=== PATIENT | female | born 1960 | race Caucasian/White ===

== ENCOUNTER 2016-08-13 07:13 | Emergency (ER) | payer BC ==
--- NOTE | 2016-08-13 08:08 | EDM.PDOC ---
ED HISTORY OF PRESENT ILLNESS - General Chief Complaint: Respiratory Problem Stated Complaint: PERSISTENT COUGH AND COLD Time Seen by Provider: 08/13/16 07:18 Source of Information: Reports: Patient History Limitations: Reports: No limitations - History of Present Illness INITIAL COMMENTS - FREE TEXT/NARRATIVE: History of present illness: [] Patient's had one week coughing since she stopped smoking. She's been having sweats at night but denies having any fevers. Patient denies any chest pain or shortness of breath. She states that she's having difficulty sleeping because she's coughing so much. She denies any leg swelling or pain. Review of systems: As per history of present illness and below otherwise all systems reviewed and negative. Past medical history: As per history of present illness and as reviewed below otherwise noncontributory. Surgical history: As per history of present illness and as reviewed below otherwise noncontributory. Social history: No reported history of drug or alcohol abuse. Family history: As per history of present illness and as reviewed below otherwise noncontributory. Physical exam: General: Well developed, well nourished in NAD HEENT: Atraumatic, normocephalic, pupils reactive, negative for conjunctival pallor or scleral icterus, mucous membranes moist, throat clear, neck supple, nontender, trachea midline. Lungs: Clear to auscultation, breath sounds equal bilaterally, chest nontender. No wheezing or accessory muscle use. Heart: S1S2, regular, negative for clicks, rubs, or JVD. Abdomen: Soft, nondistended, nontender. Negative for masses or hepatosplenomegaly. Negative for costovertebral tenderness. Pelvis: Stable nontender. Genitourinary: Deferred. Rectal: Deferred. Extremities: Atraumatic, negative for cords or calf pain. Neurovascular unremarkable. No edema Neuro: Awake, alert, oriented. Cranial nerves II through XII unremarkable. Cerebellum unremarkable. Motor and sensory unremarkable throughout. Exam nonfocal. Diagnostics: [] Therapeutics: [] Marianela Toledo Impression: [] Cough secondary to chronic smoking and recent cessation Plan: [] Kenan dc followup PMD as needed Definitive disposition and diagnosis as appropriate pending reevaluation and review of above. - Related Data Allergies/ADRs: Allergies Allergy/AdvReac Type Severity Reaction Status Date / Time azithromycin Allergy Chest Verified 08/13/16 07:30 Tightness morphine Allergy Itching Verified 08/13/16 07:30 Home Meds: Home Meds Albuterol [Ventolin HFA] 2 puff INH ASDIRECTED 08/13/16 [History] Atenolol 50 mg PO BID 08/13/16 [History] Benzonatate [Tessalon Perles] 100 mg PO TID PRN #20 cap 08/13/16 [Rx] Hydrochlorothiazide 25 mg PO DAILY 08/13/16 [History] Ipratropium/Albuterol Sulfate [Combivent Respimat Inhal [place]] 2 puff INH BID [History] Mometasone/Formoterol [Dulera 100-5 MCG] 2 puff INH BID 08/13/16 [History] Omeprazole 40 mg PO DAILY 08/13/16 [History] Past Medical History Cardiovascular History: Reports: Hypertension Respiratory History: Reports: COPD - Past Surgical History HEENT Surgical History: Reports: Adenoidectomy, Tonsillectomy Female Surgical History: Reports: Hysterectomy, Other (see below) Other Female Surgeries/Procedures: pelvic mesh implant Musculoskeletal Surgical History: Reports: Carpal tunnel Social & Family History - Family History Family Medical History: Noncontributory - Tobacco Use Smoking Status *Q: Former Smoker - Caffeine Use Caffeine Use: Reports: None - Alcohol Use Days Per Week of Alcohol Use: 7 Number of Drinks Per Day: 1 Total Drinks Per Week: 7 - Recreational Drug Use Recreational Drug Use: No ED ROS GENERAL - Review of Systems Review Of Systems: See Below (See history of present illness) ED EXAM, GENERAL - Physical Exam Exam: See Below (See history of present illness) Course - Vital Signs Last Recorded V/S: Last Vital Signs Temp 36.4 C 08/13/16 07:25 Pulse 78 08/13/16 07:25 Resp 18 08/13/16 07:25 BP 130/85 08/13/16 07:25 Pulse Ox 98 08/13/16 07:25 Departure - Departure Time of Disposition: 08:04 Disposition: Home, Self-Care 01 Condition: good Clinical Impression: Cough Prescriptions: Benzonatate [Tessalon Perles] 100 mg PO TID PRN #20 cap PRN Reason: Cough Referrals: PCP,None [Primary Care Provider] - Forms: ED Department Discharge Additional Instructions: The following information is given to patients seen in the emergency department who are being discharged to home. This information is to outline your options for follow-up care. We provide all patients seen in our emergency department with a follow-up referral. The need for follow-up, as well as the timing and circumstances, are variable depending upon the specifics of your emergency department visit. If you don't have a primary care physician on staff, we will provide you with a referral. We always advise you to contact your personal physician following an emergency department visit to inform them of the circumstance of the visit and for follow-up with them and/or the need for any referrals to a consulting specialist. The emergency department will also refer you to a specialist when appropriate. This referral assures that you have the opportunity for follow-up care with a specialist. All of these measure are taken in an effort to provide you with optimal care, which includes your follow-up. Under all circumstances we always encourage you to contact your private physician who remains a resource for coordinating your care. When calling for follow-up care, please make the office aware that this follow-up is from your recent emergency room visit. If for any reason you are refused follow-up, please contact the [facility] Emergency Department at and asked to speak to the emergency department charge nurse. [facility] [address] [place] [id number]
[2016-08-13 08:18] VITALS: BP 133/86
== END 2016-08-13 08:18 | disposition home or self-care (01) ==
LOC: MW.ED 07:13
DX: R05 Cough (principal); I10 Essential (primary) hypertension; J44.9 Chronic obstructive pulmonary disease, unspecified; Z90.710 Acquired absence of both cervix and uterus; Z98.890 Other specified postprocedural states; Z79.899 Other long term (current) drug therapy; Z88.1 Allergy status to other antibiotic agents; Z88.5 Allergy status to narcotic agent; Z87.891 Personal history of nicotine dependence
CPT/HCPCS: 99283

== ENCOUNTER 2017-06-23 21:16 | Observation (INO) | payer BC, OTHER ==
[2017-06-23] MEDS ORDERED: Aspirin 81 MG Tab.Chew PO ONE (21:24)
--- NOTE | 2017-06-23 21:26 | EDM.PDOC ---
ED HPI GENERAL MEDICAL PROBLEM - General Chief Complaint: General Stated Complaint: HBP/PRESSURE CHEST Time Seen by Provider: 06/23/17 21:25 Source of Information: Reports: Patient - History of Present Illness INITIAL COMMENTS - FREE TEXT/NARRATIVE: HISTORY AND PHYSICAL: History of present illness: [57-year-old female presents with chest pressure she rates 3 out of 10, she notes her blood pressure is out of control she is generally on atenolol and hydrochlorothiazide for this, she also has a [id number] history of smoking she has had several attempts over the last couple of months to quit she has not smoked in 7 days, she does have history of COPD on Symbicort. No association with shortness of breath diaphoresis or radiation to arm neck or jaw No fever nausea vomiting chills sweats] Review of systems: As per history of present illness and below otherwise all systems reviewed and negative. Past medical history: As per history of present illness and as reviewed below otherwise noncontributory. Surgical history: As per history of present illness and as reviewed below otherwise noncontributory. Social history: No reported history of drug or alcohol abuse. Family history: As per history of present illness and as reviewed below otherwise noncontributory. Physical exam: HEENT: Atraumatic, normocephalic, pupils reactive, negative for conjunctival pallor or scleral icterus, mucous membranes moist, throat clear, neck supple, nontender, trachea midline. Lungs: Clear to auscultation, breath sounds equal bilaterally, chest nontender. Heart: S1S2, regular, negative for clicks, rubs, or JVD. Abdomen: Soft, nondistended, nontender. Negative for masses or hepatosplenomegaly. Negative for costovertebral tenderness. Pelvis: Stable nontender. Genitourinary: Deferred. Rectal: Deferred. Extremities: Atraumatic, negative for cords or calf pain. Neurovascular unremarkable. Neuro: Awake, alert, oriented. Cranial nerves II through XII unremarkable. Cerebellum unremarkable. Motor and sensory unremarkable throughout. Exam nonfocal. Diagnostics: [CBC CMP and cardiac enzymes amylase lipase UA EKG Chest 1 view ] Therapeutics: [Normal saline 500 mL bolus Aspirin 324 mg chewable Nitroglycerin 0.4 sublingual] 2 Impression: [Chest pain/pressure-resolved after 2 nitroglycerin Headache secondary to nitroglycerin -Hypertension/hypertensive emergency-resolved Patient admitted for telemetry cardiac rule out optimize medical management Dr. Cifuentes ] Definitive disposition and diagnosis as appropriate pending reevaluation and review of above. head Pain Score (Numeric/FACES): 5 chest Pain Score (Numeric/FACES): 3 - Related Data Allergies Allergy/AdvReac Type Severity Reaction Status Date / Time azithromycin Allergy Chest Verified 06/23/17 21:29 Tightness morphine Allergy Itching Verified 06/23/17 21:29 Home Meds: Home Meds Albuterol [Ventolin HFA] 2 puff INH ASDIRECTED 08/13/16 [History] Atenolol 50 mg PO BID 08/13/16 [History] Hydrochlorothiazide 25 mg PO DAILY 08/13/16 [History] Ipratropium/Albuterol Sulfate [Combivent Respimat Inhal [place]] 2 puff INH BID [History] Omeprazole 40 mg PO DAILY 08/13/16 [History] Budesonide/Formoterol Fumarate [Symbicort 160-4.5 Mcg Inhaler] 1 puff IH ASDIRECTED 06/23/17 [History] Imipramine HCl [Imipramine] 0 mg PO DAILY 06/23/17 [History] Past Medical History Cardiovascular History: Reports: Hypertension Respiratory History: Reports: COPD - Past Surgical History Female Surgical History: Reports: Hysterectomy, Other (See Below) Musculoskeletal Surgical History: Reports: Carpal Tunnel Social & Family History - Family History Family Medical History: Noncontributory - Tobacco Use Smoking Status *Q: Former Smoker - Caffeine Use Caffeine Use: Reports: None - Alcohol Use Days Per Week of Alcohol Use: 7 Number of Drinks Per Day: 1 Total Drinks Per Week: 7 - Recreational Drug Use Recreational Drug Use: No ED ROS GENERAL - Review of Systems Review Of Systems: ROS reveals no pertinent complaints other than HPI. ED EXAM, GENERAL - Physical Exam Exam: See Below Course - Vital Signs Last Recorded V/S: Last Vital Signs Temp 98 F 06/23/17 21:16 Pulse 73 06/23/17 22:45 Resp 17 06/23/17 22:45 BP 123/77 06/23/17 22:45 Pulse Ox 97 06/23/17 22:45 - Orders/Labs/Meds Orders: Active Orders 24 hr Category Date Time Status EKG Documentation Completion [RC] STAT Care 06/23/17 21:24 Active Chest 1V Frontal [CR] Stat Exams 06/23/17 21:24 Taken Nitroglycerin [Nitrostat] Med 06/23/17 21:24 Active 0.4 mg SL Q5M PRN Sodium Chloride 0.9% [Normal Saline] 500 ml Med 06/23/17 21:30 Active IV STAT Medication Orders Sodium Chloride (Normal Saline) 500 mls @ 999 mls/hr IV STAT JENNA Last Admin: 06/23/17 21:45 Dose: 999 mls/hr Nitroglycerin (Nitrostat) 0.4 mg SL Q5M PRN PRN Reason: Chest Pain Last Admin: 06/23/17 22:40 Dose: 0.4 mg Admin: 06/23/17 22:35 Dose: 0.4 mg Labs: Laboratory Tests 06/23/17 06/23/17 06/23/17 Range/Units 21:30 21:30 22:20 WBC 8.10 (4.0-11.0) K/uL RBC 4.41 (4.30-5.90) M/uL Hgb 14.1 (12.0-16.0) g/dL Hct 39.7 (36.0-46.0) % MCV 90.0 (80.0-98.0) fL MCH 32.0 (27.0-32.0) pg MCHC 35.5 (31.0-37.0) g/dL RDW Std Deviation 40.0 (28.0-62.0) fl RDW Coeff of Rafael 12 (11.0-15.0) % Plt Count 253 (150-400) K/uL MPV 9.80 (7.40-12.00) fL Neut % (Auto) 55.1 (48.0-80.0) % Lymph % (Auto) 33.2 (16.0-40.0) % [place] % (Auto) 5.3 (0.0-15.0) % Eos % (Auto) 5.8 (0.0-7.0) % Baso % (Auto) 0.6 (0.0-1.5) % Neut # (Auto) 4.5 (1.4-5.7) K/uL Lymph # (Auto) 2.7 H (0.6-2.4) K/uL [place] # (Auto) 0.4 (0.0-0.8) K/uL Eos # (Auto) 0.5 (0.0-0.7) K/uL Baso # (Auto) 0.1 (0.0-0.1) K/uL Nucleated RBC % 0.0 /100WBC Nucleated RBCs # 0 K/uL Sodium 140 (136-146) mmol/L Potassium 3.4 L (3.5-5.1) mmol/L Chloride 103 (98-110) mmol/L Carbon Dioxide 26 (21-31) mmol/L BUN 11 (6.0-23.0) mg/dL Creatinine 0.9 (0.6-1.5) mg/dL Est Cr Clr Drug Dosing TNP Estimated GFR (MDRD) > 60.0 ml/min Glucose 128 H (60-110) mg/dL Calcium 9.9 (8.8-10.8) mg/dL Total Bilirubin 0.3 (0.1-1.5) mg/dL AST 15 (5-40) IU/L ALT 21 (8-54) IU/L Alkaline Phosphatase 80 (40-150) Creatine Kinase 92 (9-236) IU/L CK-MB (CK-2) 2.1 (0-6.6) ng/ml Troponin I < 0.10 (0.0-0.29) NG/ML Total Protein 7.4 (6.0-8.0) g/dL Albumin 4.5 (3.5-5.0) g/dL Globulin 2.9 (2.0-3.5) g/dL Albumin/Globulin Ratio 1.6 (1.3-2.8) Amylase 78 (10-90) U/L Lipase 34 (7-80) U/L Urine Color YELLOW Urine Appearance CLEAR Urine pH 7.5 (5.0-8.0) Ur Specific [place] 1.010 (1.001-1.035) Urine Protein NEGATIVE (NEGATIVE) mg/dL Urine Glucose (UA) NEGATIVE (NEGATIVE) mg/dL Urine Ketones NEGATIVE (NEGATIVE) mg/dL Urine Occult Blood NEGATIVE (NEGATIVE) Urine Nitrite NEGATIVE (NEGATIVE) Urine Bilirubin NEGATIVE (NEGATIVE) Urine Urobilinogen 0.2 (<2.0) EU/dL Ur Leukocyte Esterase TRACE (NEGATIVE) Urine RBC 0-2 (0-2/HPF) Urine WBC 1-3 (0-5/HPF) Ur Epithelial Cells FEW (NONE-FEW) Urine Bacteria FEW (NEGATIVE) Meds: Medications Generic Name Dose Route Start Last Admin Trade Name Christianoq PRN Reason Stop Dose Admin Sodium Chloride 500 mls @ 999 mls/hr 06/23/17 21:30 06/23/17 21:45 Normal Saline IV 999 mls/hr STAT JENNA Administration Nitroglycerin 0.4 mg 06/23/17 21:24 06/23/17 22:40 Nitrostat SL 0.4 mg Q5M PRN Administration Chest Pain Discontinued Medications Generic Name Dose Route Start Last Admin Trade Name Freq PRN Reason Stop Dose Admin Aspirin 81 mg 06/23/17 21:24 06/23/17 21:44 Aspirin PO 06/23/17 21:25 81 mg ONETIME ONE Administration Metoprolol Tartrate 5 mg 06/23/17 22:33 06/23/17 22:48 Lopressor IVPUSH 06/23/17 22:34 Not Given NOW STA Departure - Departure Time of Disposition: 22:59 Disposition: Refer to Observation Condition: Fair Clinical Impression: Chest pain, Hypertensive emergency - Discharge Information Referrals: PCP,None [Primary Care Provider] - Forms: ED Department Discharge - My Orders Last 24 Hours: My Active Orders 06/23/17 21:24 EKG Documentation Completion [RC] STAT Chest 1V Frontal [CR] Stat Nitroglycerin [Nitrostat] 0.4 mg SL Q5M PRN 06/23/17 21:30 Sodium Chloride 0.9% [Normal Saline] 500 ml IV STAT - Assessment/Plan Last 24 Hours: My Active Orders 06/23/17 21:24 EKG Documentation Completion [RC] STAT Chest 1V Frontal [CR] Stat Nitroglycerin [Nitrostat] 0.4 mg SL Q5M PRN 06/23/17 21:30 Sodium Chloride 0.9% [Normal Saline] 500 ml IV STAT
[2017-06-23] MEDS ORDERED: Sodium Chloride 0.9% 500 ML IV SCH (21:30)
[2017-06-23 22:05] LABS: CHLORIDE,CL 103 mmol/L (98-110); SODIUM,NA 140 mmol/L (136-146)
[2017-06-23] MEDS ORDERED: Metoprolol Tartrate 5 MG/5 ML SDV IVPUSH STA (22:33)
[2017-06-23] MEDS: Nitroglycerin 0.4 MG Tab.SL SL PRN ×2 (22:35→22:40)
[2017-06-23] MEDS ORDERED: Ketorolac 30 MG/ML SDV IVPUSH ONE (23:01)
--- NOTE | 2017-06-24 08:02 | PCM.HP ---
H&P History of Present Illness - General Date of Service: 06/24/17 Admit Problem/Dx: Admission Diagnosis/Problem Admission Diagnosis/Problem Chest pain Source of Information: Patient History Limitations: Reports: No Limitations - History of Present Illness Initial Comments - Free Text/Narative: This 57 year old female with pmh of HTN, COPD, tobacco use and newly diagnoses borderline DM type 2 presented to the ED with concerns of elevated blood pressure. She reports she felt ill Saturday evening, with some diarrhea, N/V and sinus congestion. She felt general malaise and slept most of the day Saturday. Yesterday she and her boyfriend both went to work, they work sedentary jobs, check trucks for the [employer]. She reports they got home after a 12 hour shift, still still felt kind of run down and still had the sinus pressure and congestion. She checked her BP after supper, which she normally does nightly and it was elevated 160-170s and she took her medications and tried to relax. She checked it an hour later and it was even higher and she was starting to have some R ear pain and chest pressure. She denies N/V, diaphoresis or radiation of the chest pressure. No jaw pain. She did reports earlier that day she had some mid back pain, between the shoulder blades, but no chest pain at that time and took aspirin which helped somewhat and then it went away. She reports over Saturday and Saturday she did not take her medications because she was not feeling well,but did take it Saturday morning. She recently had a follow up with PCP last week and was diagnosed with borderline DM and started on Metformin, which she also did not start because she knows is can cause stomach upset and she again wasn't feeling well. She denies fever, chills, cough or productive cough. She reports sinus pressure and congestion. The R ear pain and chest pressure improved in the ED after her BP normalized. In the ED CBC WNL, glucose 128. Initial troponin negative EKG SR with no signs of acute ischemia. CXR negative for acute cardiopulmonary processes. She was given ASA and Nitro x 2, which helped pressure and BP. BP on arrival wsa 193/ 115 and dropped to 123/77 after Nitro. She was admitted for chest pain and hypertension. PCP, Brenda Mackay CLINICAL NURSE head Pain Score (Numeric/FACES): 5 chest Pain Score (Numeric/FACES): 3 - Related Data Allergies/Adverse Reactions: Allergies Allergy/AdvReac Type Severity Reaction Status Date / Time azithromycin Allergy Chest Verified 06/24/17 05:52 Tightness morphine Allergy Itching Verified 06/24/17 05:52 Home Medications: Home Meds Albuterol [Ventolin HFA] 2 puff INH ASDIRECTED 08/13/16 [History] Atenolol 50 mg PO BID 08/13/16 [History] Hydrochlorothiazide 25 mg PO DAILY 08/13/16 [History] Ipratropium/Albuterol Sulfate [Combivent Respimat Inhal Baxter] 2 puff INH BID [History] Omeprazole 40 mg PO DAILY 08/13/16 [History] Budesonide/Formoterol Fumarate [Symbicort 160-4.5 Mcg Inhaler] 1 puff IH ASDIRECTED 06/23/17 [History] Imipramine HCl [Imipramine] 0 mg PO DAILY 06/23/17 [History] Acetaminophen [Tylenol] 650 mg PO Q6H PRN tablet 06/24/17 [Rx] Fluticasone Propionate [Flonase] 0 gm NASBOTH DAILY bottle 06/24/17 [Rx] Past Medical History - Past Health History Medical/Surgical History: Denies Medical/Surgical History HEENT History: Reports: None Cardiovascular History: Reports: Hypertension. Denies: Afib, Blood Clots/VTE/ DVT, CAD, Heart Failure, High Cholesterol, PR, SOB on Exertion Respiratory History: Reports: COPD. Denies: PE Gastrointestinal History: Reports: GERD. Denies: GI Bleed, Inflammatory Bowel Disease Genitourinary History: Reports: None. Denies: Chronic Renal Insuffiency PHYSICIAN ASSISTANT PSYCHIATRY History: Reports: Musculoskeletal History: Reports: None Neurological History: Reports: None. Denies: CVA, TIA Psychiatric History: Reports: Anxiety Endocrine/Metabolic History: Reports: Obesity/BMI 30+, Other (See Below) Other Endocrine/Metabolic History: borderline diabetes - Infectious Disease History Infectious Disease History: Reports: Chicken Pox - Past Surgical History HEENT Surgical History: Reports: Adenoidectomy, Tonsillectomy Cardiovascular Surgical History: Reports: None Female Surgical History: Reports: Hysterectomy, Other (See Below) Endocrine Surgical History: Reports: None Musculoskeletal Surgical History: Reports: Carpal Tunnel Social & Family History - Family History Family Medical History: Noncontributory - Tobacco Use Smoking Status *Q: Former Smoker (currently in the process of quitting.) Years of Tobacco use: 30 Used Tobacco, but Quit: Yes Month Tobacco Last Used: 1 Second Hand Smoke Exposure: No - Caffeine Use Caffeine Use: Reports: Soda - Alcohol Use Days Per Week of Alcohol Use: 1 Number of Drinks Per Day: 2 Total Drinks Per Week: 2 Alcohol Use Frequency: Weekly - Recreational Drug Use Recreational Drug Use: No - Living Situation & Occupation Living situation: Reports: with Significant Other Occupation: Employed H&P Review of Systems - Review of Systems: Review Of Systems: See Below General: Reports: Malaise (last couple days.). Denies: Fever, Chills HEENT: Reports: Headaches (sinus headache/pressure), Sinus Congestion. Denies: Hearing Changes, Vertigo, Visual Changes Pulmonary: Reports: No Symptoms. Denies: Shortness of Breath, Pleuritic Chest Pain, Cough, Sputum Cardiovascular: Reports: No Symptoms. Denies: Chest Pain, Palpitations, Edema, Lightheadedness Gastrointestinal: Reports: No Symptoms. Denies: Abdominal Pain, Black Stool, Bloody Stool, Distension, Nausea, Vomiting Genitourinary: Reports: No Symptoms. Denies: Dysuria, Frequency, Burning Musculoskeletal: Reports: No Symptoms Skin: Reports: No Symptoms. Denies: Rash, Wound Psychiatric: Reports: Suicidal Ideation Neurological: Reports: No Symptoms. Denies: Confusion Exam - Exam Exam: See Below - Vital Signs Vital Signs: Last Vital Signs Temp 97.4 F 06/24/17 03:44 Pulse 66 06/24/17 03:44 Resp 18 06/24/17 03:44 BP 136/85 06/24/17 03:44 Pulse Ox 98 06/24/17 04:50 Weight: 71 kg - Exam General: Alert, Oriented, Cooperative HEENT: Conjunctiva Clear, Mucosa Moist & [place], Posterior Pharynx Clear, TMs Clear Neck: Trachea Midline, Lymphadenopathy (L anterior cervical and periauricular L with slight tenderness, small). No: Thyromegaly Lungs: Clear to Auscultation, Normal Respiratory Effort Cardiovascular: Regular Rate, Regular Rhythm, Normal S1, Normal S2 GI/Abdominal Exam: Normal Bowel Sounds, Soft, Non-Tender, No Organomegaly, No Distention, No Abnormal Bruit, No Mass, Pelvis Stable Back Exam: Normal Inspection, Full Range of Motion, NT Extremities: Normal Inspection, Normal Range of Motion, Non-Tender, No Pedal Edema, Normal Capillary Refill Neuro Extensive - Mental Status: Alert, Oriented x3, Normal Mood/Affect, Normal Cognition Neuro Extensive - Motor, Sensory, Reflexes: CN II-XII Intact Psychiatric: Alert, Normal Affect, Normal Mood - Patient Data Lab Results Last 24 hrs: Laboratory Results - last 24 hr 06/24/17 Range/Units 04:58 Troponin I < 0.10 (0.0-0.29) NG/ML Result Diagrams: 06/23/17 21:30 06/23/17 21:30 EKG INTERPRETATION EKG Date: 06/24/17 Rhythm: NSR Rate (Beats/Min): 74 P-Wave: Present QRS: Normal ST-T: Normal QT: Normal *Q Meaningful Use (ADM) - VTE *Q VTE Criteria *Q: - Stroke *Q Stroke Criteria *Q: - AMI *Q AMI Criteria *Q: - Problem List (1) Chest pain SNOMED Code(s): 86915984 ICD Code: R07.9 - CHEST PAIN, UNSPECIFIED Status: Acute Current Visit: Yes (2) COPD (chronic obstructive pulmonary disease) SNOMED Code(s): 25162862 ICD Code: J44.9 - CHRONIC OBSTRUCTIVE PULMONARY DISEASE, UNSPECIFIED Status : Chronic Current Visit: Yes (3) HTN (hypertension) SNOMED Code(s): 91407091 ICD Code: I10 - ESSENTIAL (PRIMARY) HYPERTENSION Status: Chronic Current Visit: Yes Qualifiers: Hypertension type: essential hypertension Qualified Code(s): I10 - Essential (primary) hypertension (4) Tobacco abuse SNOMED Code(s): 918631598 ICD Code: Z72.0 - TOBACCO USE Status: Chronic Current Visit: Yes Problem List Initiated/Reviewed/Updated: Yes Orders Last 24hrs: Active Orders 24 hr Category Date Time Status Antiembolic Devices [RC] PER UNIT ROUTINE Care 06/24/17 01:26 Active Oxygen Therapy [RC] PRN Care 06/24/17 01:21 Active Telemetry Monitoring [Cardiac Monitoring] [RC] Q8H Care 06/23/17 23:18 Active Vital Signs [RC] Q4H Care 06/24/17 01:21 Active Regular Diet [DIET] Diet 06/24/17 Breakfast Active GLYCOSYLATED HEMOGLOBIN,HGBA1C [CHEM] Routine Lab 06/24/17 07:58 Ordered LIPID PANEL [CHEM] Routine Lab 06/24/17 07:58 Ordered TROPONIN I [CHEM] Q6H Lab 06/24/17 11:00 Ordered Atenolol [Tenormin] Med 06/24/17 09:00 Active 50 mg PO BID Hydrochlorothiazide Med 06/24/17 09:00 Active 25 mg PO DAILY Omeprazole Med 06/24/17 09:00 Active 40 mg PO DAILY Patient's Own Medication [Ptom] Med 06/24/17 09:00 Active 2 each INH DAILY Sequential Compression Device [OM.PC] Per Unit Routine Oth 06/24/17 01:25 Ordered Resuscitation Status Routine Resus Stat 06/24/17 01:21 Ordered Medication Orders Atenolol (Tenormin) 50 mg PO BID JENNA Hydrochlorothiazide (Hydrochlorothiazide) 25 mg PO DAILY JENNA Nitroglycerin (Nitrostat) 0.4 mg SL Q5M PRN PRN Reason: Chest Pain Last Admin: 06/23/17 22:40 Dose: 0.4 mg Admin: 06/23/17 22:35 Dose: 0.4 mg Omeprazole (Omeprazole) 40 mg PO DAILY JENNA Symbicort 160/4.5 (Mcg) 2 each INH DAILY JENNA Assessment/Plan Comment:: This 57 year old female admitted with chest pain and hypertension 1. chest pain: Troponin x 2 negative. Telemetry remains SR with no acute ischemic changes. Chest pressure is gone. BP is controlled and has remained 120- 130/80s overnight. Continue home medications this morning and monitor. Third troponin at 11:00 this morning. Lipid panel revealed LDL 96, HDL 57, Total 174 and triglycerides 105, A1c 6.0. She was recently started on Metformin but has not actually taken the medication yet. Congratulated on smoking cessation and encouraged to keep this up. Using Nicotine patches currently. 2. HTN: Better controlled, no changes to medications. Continue Atenolol and HCTZ 3. Sinus congestion: No fevers or leukocytosis. Likely viral or allergic. Will start FLonase and continue on discharge. She is to follow with PCP is this continues to worsen or not improve. Encouraged not to use OTC cold medications or decongestants due to HTN, she reports she understands and has not used in a very long time. Discharge Plan: Third troponin negative and telemetry continues to show no acute ischemic changes. Will discharge home today. Will arrange outpatient stress test. Continue to monitor BP at home and remain on Atenolol and HCTZ. BP controlled since arrival to ED. Follow up with PCP if BP continue to elevate. Continue Metformin as prescribed in clinic. Encouraged to continue smoking cessation. She is to return to ED or clinic if concerns should arise.
[2017-06-24] MEDS ORDERED: SYMBICORT 160/4.5 MCG INH SCH (09:00)
[2017-06-24] MEDS ORDERED: Hydrochlorothiazide 25 MG Tab PO SCH (09:00)
[2017-06-24] MEDS ORDERED: Atenolol 50 MG Tab PO SCH (09:00)
[2017-06-24] MEDS ORDERED: Fluticasone Propionate Nasal Spray 16 GM Bottle NASBOTH SCH (09:00)
[2017-06-24] MEDS ORDERED: Omeprazole 20 MG Cap.CR PO SCH (09:00)
[2017-06-24] MEDS ORDERED: Acetaminophen 325 MG Tab PO PRN (10:09)
[2017-06-24 12:56] VITALS: BP 111/79
--- NOTE | 2017-06-24 18:58 | CR ---
EXAM DATE: 06/23/17 PATIENT'S AGE: 57 Patient: JENNA GARRETT Facility: [place], [place] Site . Site : [id number] Study: XRay Chest [id number]/18/2018 9:46:15 PM Ordering Physician: Augustine Moran Final Report: INDICATION: SOB TECHNIQUE: Chest 1 view COMPARISON: None FINDINGS: Cardiovascular and mediastinum: Heart size and vasculature are normal in caliber and appearance. Mediastinum is within normal limits. Lungs and pleural space: Mild scarring/atelectasis. No sign of pleural effusion. No pneumothorax. Bones and soft tissues: No significant findings. IMPRESSION: No acute cardiopulmonary disease Dictated by Chandler Coburn MD @ 06/23/2017 9:59:28 PM Dictated by: Chandler Coburn MD @ 06/23/2017 21:59:42 (Electronic Signature) Report Signed by Proxy. [email or web address]
== END 2017-06-24 12:35 | disposition home or self-care (01) ==
LOC: MW.ED 21:16 → MW.MS 23:00
PROVIDERS: ADMIT Internal Medicine; ATTEND Internal Medicine
DX: R07.89 Other chest pain (principal); I10 Essential (primary) hypertension; J44.9 Chronic obstructive pulmonary disease, unspecified; F17.200 Nicotine dependence, unspecified, uncomplicated; E11.9 Type 2 diabetes mellitus without complications; K21.9 Gastro-esophageal reflux disease without esophagitis; E66.9 Obesity, unspecified; Z68.30 Body mass index [BMI] 30.0-30.9, adult; Z88.1 Allergy status to other antibiotic agents; Z88.5 Allergy status to narcotic agent; Z79.899 Other long term (current) drug therapy; Z79.51 Long term (current) use of inhaled steroids
CPT/HCPCS: 36415; 71045; 80053; 80061; 81001; 82150; 82550; 82553; 83036; 83690; 84484; 85025; 93005; 96361; 96374; 99285; A9270; J1885; J7040; 99284; G0378